=== PATIENT | female | born 1955 | race Two or more races ===

== ENCOUNTER → 2021-02-21 | Outpatient (CLI) | payer MEDICARE ==
[~2021-02-21] MED LIST: LOSA50TA2 PO
== END | disposition home or self-care (01) ==
LOC: CFH 10:41
PROVIDERS: ATTEND Physician Assistant
DX: Z12.31 Encounter for screening mammogram for malignant neoplasm of breast (principal); Z13.820 Encounter for screening for osteoporosis; M85.88 Other specified disorders of bone density and structure, other site; E78.5 Hyperlipidemia, unspecified; I10 Essential (primary) hypertension; F43.23 Adjustment disorder with mixed anxiety and depressed mood
CPT/HCPCS: 77063; 77067; 77080

== ENCOUNTER → 2021-03-07 | Outpatient (CLI) | payer MEDICARE | END | disposition home or self-care (01) | LOC: CFH 12:32 | PROVIDERS: ATTEND Physician Assistant | DX: N63.12 Unspecified lump in the right breast, upper inner quadrant (principal); R92.8 Other abnormal and inconclusive findings on diagnostic imaging of breast | CPT/HCPCS: 76642; 77065 ==